=== PATIENT | female | born 1960 | race Caucasian/White ===

== ENCOUNTER 2023-01-29 09:48 | Emergency (ER) | payer MEDICAID ==
[~2023-01-29] VITALS: Ht 160 cm; Wt 72.6 kg
[2023-01-29] MEDS ORDERED: KETOROLAC TROMETHAMINE 30 MG INJ ONE (10:06)
[2023-01-29] MEDS ORDERED: KETOROLAC TROMETHAMINE 30 MG INJ IM ONE (10:15)
[2023-01-29] MEDS ORDERED: IBUP-1957 PO (10:24)
[2023-01-29 10:28] VITALS: BP 108/78; O2SAT 98
== END 2023-01-29 10:30 | disposition home or self-care (01) ==
LOC: ER 09:48
DX: S30.0XXA Contusion of lower back and pelvis, initial encounter (principal); E11.9 Type 2 diabetes mellitus without complications; Z79.1 Long term (current) use of non-steroidal anti-inflammatories (NSAID); W01.0XXA Fall on same level from slipping, tripping and stumbling without subsequent striking against object, initial encounter; Y93.89 Activity, other specified; Y92.89 Other specified places as the place of occurrence of the external cause; Y99.8 Other external cause status
CPT/HCPCS: 99283; 72100; 96372; J1885; A4663